=== PATIENT | female | born 1985 | race Caucasian/White ===

== ENCOUNTER → 2018-05-01 | Outpatient (CLI) | payer OTHER | END | disposition home or self-care (01) | LOC: CFH 06:56 | PROVIDERS: ATTEND Nurse Practitioner Family | DX: K80.20 Calculus of gallbladder without cholecystitis without obstruction (principal) | CPT/HCPCS: 76700 ==

== ENCOUNTER → 2018-05-17 | Outpatient (CLI) | payer OTHER ==
[~2018-05-17] MED LIST: BUSP10TA PO; SUCR1TAB PO
== END | disposition home or self-care (01) ==
LOC: STAR 15:44
PROVIDERS: ATTEND Surgery
DX: Z02.9 Encounter for administrative examinations, unspecified (principal)

== ENCOUNTER 2018-05-22 07:11 | Day surgery (SDC) | payer OTHER ==
[~2018-05-22] VITALS: Ht 162.6 cm; Wt 90.9 kg
[~2018-05-22 07:11] MED LIST changes: +BUPIVACAINE/PF-EPI 0.5% 1:200K ONE
[2018-05-22 07:59] VITALS: BP 117/82
[2018-05-22 08:01] LABS: HCG UR SG 1.024 (1.003-1.030)
[2018-05-22] MEDS ORDERED: LACTATED RINGERS 1,000 ML IV SCH (08:02)
[2018-05-22] MEDS ORDERED: GABAPENTIN 300 MG CAPSULE ONE (08:32)
[2018-05-22] MEDS ORDERED: ACETAMINOPHEN 500 MG TABLET ONE (08:32)
[2018-05-22] MEDS ORDERED: SCOPOLAMINE PATCH, 1.5MG PATCH.TD72 TD ONE (08:32)
[2018-05-22] MEDS ORDERED: MIDAZOLAM 1 MG/ML, 2ML ONE (08:38)
[2018-05-22] MEDS ORDERED: FENTANYL PF 250 MCG/5ML ONE (08:39)
[2018-05-22] MEDS ORDERED: NEOSTIGMINE 1 MG/ML, 10ML ONE (08:49)
[2018-05-22] MEDS ORDERED: ONDANSETRON 2MG/ML, 2ML ONE (08:49)
[2018-05-22] MEDS ORDERED: GLYCOPYRROLATE 0.2MG/1ML, 5ML ONE (08:49)
[2018-05-22] MEDS ORDERED: PROPOFOL 10 MG/ML, 20ML ONE (08:49)
[2018-05-22] MEDS ORDERED: CEFAZOLIN 1,000 MG ONE (08:49)
[2018-05-22] MEDS ORDERED: ROCURONIUM 10 MG/ML,10ML ONE (08:49)
[2018-05-22] MEDS ORDERED: DEXAMETHASONE 4 MG/ML, 1ML ONE (08:49)
[2018-05-22] MEDS ORDERED: PROMETHAZINE 25 MG/ML, 1ML IV PRN (09:30)
[2018-05-22] MEDS ORDERED: MEPERIDINE/PF 25MG/0.5ML IVPush PRN (09:30)
[2018-05-22] MEDS ORDERED: OXYcodone 5 MG/5 ML ORAL.SOL UDC PO PRN (09:30)
[2018-05-22] MEDS ORDERED: HYDROmorphone 1 MG/ML, 1ML IV PRN (09:30)
[2018-05-22] MEDS ORDERED: ALBUTEROL SULFATE 2.5 MG/3 ML NPPB PRN (09:30)
[2018-05-22] MEDS ORDERED: hydrALAzine 20 MG/ML, 1ML IV PRN (09:30)
[2018-05-22] MEDS ORDERED: LABETALOL 5MG/ML, 20ML IV PRN (09:30)
[2018-05-22] MEDS ORDERED: OXYcodone 5 MG/5 ML ORAL.SOL UDC ONE (09:33)
[2018-05-22] MEDS ORDERED: FENTANYL PF 100 MCG/2ML ONE (09:33)
[2018-05-22] MEDS ORDERED: MEPERIDINE/PF 50 MG/ML ONE (09:33)
[2018-05-22] MEDS: FENTANYL PF 100 MCG/2ML IV PRN ×4 (09:47→10:23)
[2018-05-22] MEDS ORDERED: HYDROcodone/APAP 5/325 TABLET ONE (14:12)
[2018-05-22] MEDS ORDERED: HYDROcodone/APAP 5/325 TABLET PO ONE (14:30)
== END 2018-05-22 16:25 | disposition home or self-care (01) ==
LOC: OUT 07:11
PROVIDERS: ATTEND Surgery
DX: K80.12 Calculus of gallbladder with acute and chronic cholecystitis without obstruction (principal); F41.9 Anxiety disorder, unspecified; Z98.890 Other specified postprocedural states
CPT/HCPCS: 47562; 81025; 88304; C1729; J0690; J1100; J2175; J2250; J2405; J2704; J2710; J3010; J3490; J7120

== ENCOUNTER → 2019-11-13 | Outpatient (CLI) | payer OTHER ==
[~2019-11-13] MED LIST changes: -BUPIVACAINE/PF-EPI 0.5% 1:200K ONE
== END | disposition home or self-care (01) ==
LOC: RAD 12:41
PROVIDERS: ATTEND Physician Assistant Medical
DX: K76.0 Fatty (change of) liver, not elsewhere classified (principal); Z90.49 Acquired absence of other specified parts of digestive tract
CPT/HCPCS: 76700